=== PATIENT | female | born 1965 | race Caucasian/White ===

== ENCOUNTER 2017-07-04 09:42 | Emergency (ER) | payer OTHER, BC ==
[~2017-07-04] VITALS: Ht 167.6 cm; Wt 81.2 kg
[~2017-07-04 09:42] MED LIST: Z.0.NO CURRENT MEDS
[2017-07-04 09:53] VITALS: BP 153/67; PULSE 74; RESP 15; TEMP 97.4; O2SAT 99
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
[2017-07-04] MEDS ORDERED: IBUPROFEN 600 MG TAB PO ONE (11:00)
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
[2017-07-04 13:24] VITALS: RESP 18
== END 2017-07-04 13:41 | disposition home or self-care (01) ==
LOC: PHED 09:42 → PHEFT 13:41
DX: S39.012A Strain of muscle, fascia and tendon of lower back, initial encounter (principal); S06.0X0A Concussion without loss of consciousness, initial encounter; V43.52XA Car driver injured in collision with other type car in traffic accident, initial encounter
CPT/HCPCS: 70450; 72100; 99285